=== PATIENT | male | born 1995 | race Caucasian/White ===

== ENCOUNTER 2017-08-12 08:19 | Emergency (ER) | payer BC ==
[2017-08-12] MEDS ORDERED: IBUPROFEN 600 MG TAB PO ONE (08:29)
[2017-08-12] MEDS ORDERED: LET GEL TOPICAL 1 EA SYR TP ONE ×2 (08:31→08:40)
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
[2017-08-12 10:07] VITALS: BP 142/87; PULSE 72; RESP 18; TEMP 98.2; O2SAT 98
== END 2017-08-12 10:09 | disposition home or self-care (01) ==
DX: S06.0X0A Concussion without loss of consciousness, initial encounter (principal); S02.19XA Other fracture of base of skull, initial encounter for closed fracture; S16.1XXA Strain of muscle, fascia and tendon at neck level, initial encounter; V12.4XXA Pedal cycle driver injured in collision with two- or three-wheeled motor vehicle in traffic accident, initial encounter; Y92.410 Unspecified street and highway as the place of occurrence of the external cause; Y99.8 Other external cause status; Y93.55 Activity, bike riding
CPT/HCPCS: L0174